=== PATIENT | female | born 1935 | race Caucasian/White ===

== ENCOUNTER → 2017-02-13 | Outpatient (REF) | payer BC, OTHER, MEDICARE | LOC: M LAB REF 16:35 | PROVIDERS: ATTEND Family Medicine | DX: E78.4 Other hyperlipidemia (principal) ==

== ENCOUNTER 2017-11-06 11:28 | Day surgery (SDC) | payer MEDICARE, BC, OTHER ==
[~2017-11-06 11:28] MED LIST: LIDOCAINE 2% MDV 20 ML VIAL As Ordered; PROPOFOL 200 MG/20 ML VIAL As Ordered
[2017-11-06] MEDS: NS 1,000 ML IV (11:30)
== END 2017-11-06 15:26 | disposition home or self-care (01) ==
LOC: M OPP 11:28
DX: D50.9 Iron deficiency anemia, unspecified (principal); K64.9 Unspecified hemorrhoids; D49.0 Neoplasm of unspecified behavior of digestive system; K63.5 Polyp of colon; K57.30 Diverticulosis of large intestine without perforation or abscess without bleeding; K44.9 Diaphragmatic hernia without obstruction or gangrene; I10 Essential (primary) hypertension; E78.00 Pure hypercholesterolemia, unspecified; E11.9 Type 2 diabetes mellitus without complications; K21.9 Gastro-esophageal reflux disease without esophagitis; Z79.82 Long term (current) use of aspirin; Z79.84 Long term (current) use of oral hypoglycemic drugs; Z78.0 Asymptomatic menopausal state; Z87.891 Personal history of nicotine dependence; Z82.49 Family history of ischemic heart disease and other diseases of the circulatory system
CPT/HCPCS: 45385

== ENCOUNTER 2017-11-29 08:53 | Inpatient (IN) | payer MEDICARE, BC, OTHER ==
[~2017-11-29 08:53] MED LIST changes: +LIDOCAINE 2% INJ 100 MG/5 ML SDV (FOR ANES.) As Ordered; -LIDOCAINE 2% MDV 20 ML VIAL As Ordered; +MIDAZOLAM INJ 2 MG/2 ML VIAL (J2250) As Ordered; +ONDANSETRON 4MG/2ML VIAL (J2405) As Ordered; +ROCURONIUM BROMIDE 50 MG/5 ML VIAL As Ordered; +dexameTHASONE 4 MG/ML 1ML VIAL (J1100) As Ordered; +fentaNYL 250 MCG/5 ML INJECTION (J3010) As Ordered
[2017-11-29 09:29] LABS: HEMATOCRIT 33.2 % (36.0-47.0); HEMOGLOBIN 9.7 g/dl (12.0-15.5); MEAN CORPUSCULAR HEMOGLOBIN 21.2 pg (27.0-33.0); MEAN CORPUSCULAR HGB CONC 29.2 g/dl (32.0-36.5); MEAN CORPUSCULAR VOLUME 72.6 fl (80.0-96.0); PLATELET COUNT, AUTOMATED 359 10^3/uL (150-450); RED BLOOD COUNT 4.57 10^6/uL (4.00-5.40); RED CELL DISTRIBUTION WIDTH 23.7 % (11.5-14.5)
[2017-11-29] MEDS: ALVIMOPAN 12 MG CAPSULE (ENTEREG) PO ×2 (09:43→21:27)
[2017-11-29] MEDS: LR 1,000 ML IV ×3 (09:44→18:18)
[2017-11-29] MEDS: cefoTEtan DISODIUM 2 GM in D5W MINI-BAG PLUS 50 ML IV ×2 (09:44→09:54)
[2017-11-29 09:50] LABS: BEDSIDE GLUCOSE 140 MG/DL (83-110)
[2017-11-29] MEDS: HEPARIN SOD (PORCINE) 5000 UNITS/ML VIAL SQ (11:31)
[2017-11-29] MEDS ORDERED: SEVOFLURANE INHAL SOLN 250 ML BTL As Ordered (11:31)
[2017-11-29] MEDS ORDERED: dexameTHASONE 4 MG/ML 1ML VIAL (J1100) As Ordered (12:16)
[2017-11-29] MEDS: metroNIDAZOLE 500 MG in APPROPRIATE DILUENT 1 EA IV (12:20)
[2017-11-29] MEDS ORDERED: PHENYLephrine HCL 500 MCG/5 ML (100MCG/ML) SYRINGE (J2370) As Ordered (12:20)
[2017-11-29] MEDS ORDERED: NEOSTIGMINE 10 MG/10 ML VIAL (J2710) As Ordered (12:42)
[2017-11-29] MEDS ORDERED: HYDROmorphone HCL 2 MG/ML 1ML VIAL (J1170) As Ordered (12:42)
[2017-11-29] MEDS ORDERED: GLYCOPYRROLATE INJ 0.2 MG/ML 2 ML VIAL As Ordered (12:42)
[2017-11-29] MEDS ORDERED: ROCURONIUM BROMIDE 50 MG/5 ML VIAL As Ordered (13:28)
[2017-11-29] MEDS ORDERED: ESMOLOL INJ 100MG/10ML VIAL As Ordered (13:46)
[2017-11-29] MEDS: BUPIVACAINE HCL 0.25% 30 ML VIAL As Ordered (15:20)
[2017-11-29] MEDS: LIDOCAINE 1% SDV INJ 30 ML VIAL As Ordered (15:20)
[2017-11-29] MEDS ORDERED: ONDANSETRON 4MG/2ML VIAL (J2405) IV ×2 (15:30→16:15)
[2017-11-29] MEDS ORDERED: NORCO, ANEXSIA 5/325MG TABLET (HYDROcodone/ACETAMINOPHEN) PO (15:30)
[2017-11-29] MEDS ORDERED: MORPHINE 4 MG/ML 1ML VIAL/SYRINGE (J2270) IV (15:30)
[2017-11-29] MEDS ORDERED: GLUCOSE 4 GM CHEW TABLET PO (15:45)
[2017-11-29] MEDS ORDERED: DEXTROSE 50% 50 ML SYRINGE IV (15:45)
[2017-11-29] MEDS ORDERED: GLUCAGON FOR INJ 1 MG VIAL (J1610) SC (15:45)
[2017-11-29] MEDS ORDERED: fentaNYL 100 MCG/2 ML INJECTION (J3010) IV (16:15)
[2017-11-29] MEDS ORDERED: HYDROMORPHONE HCL 0.5 MG/ 0.5 ML SYRINGE (J1170 PER 1) As Ordered (16:24)
[2017-11-29] MEDS: HYDROMORPHONE HCL 0.5 MG/ 0.5 ML SYRINGE (J1170 PER 1) IV ×2 (16:27→16:32)
[2017-11-29] MEDS: PERCOCET 5MG/325MG TAB PO (16:28)
[2017-11-29] MEDS: LOSARTAN 25 MG TAB PO (18:18)
[2017-11-29 18:29] LABS: BEDSIDE GLUCOSE 225 MG/DL (83-110)
[2017-11-29] MEDS: HumaLOG INSULIN (NovoLOG) PER UNIT SC (18:37)
[2017-11-29 21:01] LABS: BEDSIDE GLUCOSE 167 MG/DL (83-110)
[2017-11-29] MEDS: SENOKOT S TAB PO (21:26)
[2017-11-29] MEDS: HEPARIN SOD (PORCINE) 5000 UNITS/ML VIAL SC (21:27)
[2017-11-29] MEDS: OMEPRAZOLE 20 MG CAP PO (21:27)
[2017-11-29] MEDS: SIMVASTATIN 20 MG TAB PO (21:27)
[2017-11-30 00:23] LABS: BEDSIDE GLUCOSE 142 MG/DL (83-110)
[2017-11-30] MEDS: HumaLOG INSULIN (NovoLOG) PER UNIT SC ×4 (00:28→17:27)
[2017-11-30] MEDS: LR 1,000 ML IV (04:26)
[2017-11-30 06:01] LABS: BASO % 0.1 % (0.0-1.0); HEMATOCRIT 27.1 % (36.0-47.0); HEMOGLOBIN 8.2 g/dl (12.0-15.5); IMMATURE GRANULOCYTE % 0.7 % (0-3.0); LYMPH # 1.6 10^3/uL (1.5-4.5); LYMPH % 13.6 % (24.0-44.0); MEAN CORPUSCULAR HEMOGLOBIN 21.2 pg (27.0-33.0); MEAN CORPUSCULAR HGB CONC 30.3 g/dl (32.0-36.5); MEAN CORPUSCULAR VOLUME 70.2 fl (80.0-96.0); MONO # 0.8 10^3/uL (0.0-0.8); MONO % 6.9 % (0.0-5.0); NEUTROPHILS # 9.4 10^3/uL (1.8-7.7); NEUTROPHILS % 78.7 % (36.0-66.0); PLATELET COUNT, AUTOMATED 316 10^3/uL (150-450); RED BLOOD COUNT 3.86 10^6/uL (4.00-5.40); RED CELL DISTRIBUTION WIDTH 23.6 % (11.5-14.5)
[2017-11-30 06:16] LABS: ANION GAP 7 MEQ/L (8-16); BLOOD UREA NITROGEN 12 MG/DL (7-18); CALCIUM LEVEL 8.8 MG/DL (8.8-10.2); CARBON DIOXIDE LEVEL 27 MEQ/L (21-32); CHLORIDE LEVEL 107 MEQ/L (98-107); CREATININE FOR GFR 0.88 MG/DL (0.55-1.30); GLOMERULAR FILTRATION RATE > 60.0 (>32); GLUCOSE, FASTING 102 MG/DL (70-100); POTASSIUM SERUM 4.6 MEQ/L (3.5-5.1); SODIUM LEVEL 141 MEQ/L (136-145)
[2017-11-30 06:23] LABS: BEDSIDE GLUCOSE 102 MG/DL (83-110)
[2017-11-30] MEDS: HEPARIN SOD (PORCINE) 5000 UNITS/ML VIAL SC ×3 (06:26→21:04)
[2017-11-30] MEDS: SENOKOT S TAB PO ×2 (09:06→21:03)
[2017-11-30] MEDS: OMEPRAZOLE 20 MG CAP PO ×2 (09:06→21:03)
[2017-11-30] MEDS: LOSARTAN 25 MG TAB PO (09:06)
[2017-11-30] MEDS: ALVIMOPAN 12 MG CAPSULE (ENTEREG) PO ×2 (09:08→21:03)
[2017-11-30 12:02] LABS: BEDSIDE GLUCOSE 101 MG/DL (83-110)
[2017-11-30 16:56] LABS: BEDSIDE GLUCOSE 121 MG/DL (83-110)
[2017-11-30] MEDS: NORCO, ANEXSIA 5/325MG TABLET (HYDROcodone/ACETAMINOPHEN) PO (17:27)
[2017-11-30] MEDS: SIMVASTATIN 20 MG TAB PO (21:03)
[2017-12-01] MEDS: HumaLOG INSULIN (NovoLOG) PER UNIT SC ×4 (00:26→17:14)
[2017-12-01 05:43] LABS: BEDSIDE GLUCOSE 124 MG/DL (83-110)
[2017-12-01] MEDS: HEPARIN SOD (PORCINE) 5000 UNITS/ML VIAL SC ×3 (05:50→21:15)
[2017-12-01] MEDS: NORCO, ANEXSIA 5/325MG TABLET (HYDROcodone/ACETAMINOPHEN) PO ×3 (05:59→23:25)
[2017-12-01 06:29] LABS: BASO % 0.2 % (0.0-1.0); EOS % 0.2 % (0.0-3.0); HEMATOCRIT 30.4 % (36.0-47.0); HEMOGLOBIN 9.1 g/dl (12.0-15.5); IMMATURE GRANULOCYTE % 0.7 % (0-3.0); LYMPH # 2.3 10^3/uL (1.5-4.5); LYMPH % 17.9 % (24.0-44.0); MEAN CORPUSCULAR HEMOGLOBIN 21.2 pg (27.0-33.0); MEAN CORPUSCULAR HGB CONC 29.9 g/dl (32.0-36.5); MEAN CORPUSCULAR VOLUME 70.9 fl (80.0-96.0); MONO % 7.4 % (0.0-5.0); NEUTROPHILS # 9.5 10^3/uL (1.8-7.7); NEUTROPHILS % 73.6 % (36.0-66.0); PLATELET COUNT, AUTOMATED 329 10^3/uL (150-450); RED BLOOD COUNT 4.29 10^6/uL (4.00-5.40); RED CELL DISTRIBUTION WIDTH 23.4 % (11.5-14.5); WHITE BLOOD COUNT 12.9 10^3/uL (4.0-10.0)
[2017-12-01 06:53] LABS: ANION GAP 7 MEQ/L (8-16); BLOOD UREA NITROGEN 10 MG/DL (7-18); CALCIUM LEVEL 8.4 MG/DL (8.8-10.2); CARBON DIOXIDE LEVEL 28 MEQ/L (21-32); CHLORIDE LEVEL 103 MEQ/L (98-107); CREATININE FOR GFR 0.78 MG/DL (0.55-1.30); GLOMERULAR FILTRATION RATE > 60.0 (>32); GLUCOSE, FASTING 112 MG/DL (70-100); POTASSIUM SERUM 3.8 MEQ/L (3.5-5.1); SODIUM LEVEL 138 MEQ/L (136-145)
[2017-12-01] MEDS: OMEPRAZOLE 20 MG CAP PO ×2 (08:29→21:15)
[2017-12-01] MEDS: ALVIMOPAN 12 MG CAPSULE (ENTEREG) PO ×2 (08:31→21:14)
[2017-12-01] MEDS: SENOKOT S TAB PO ×2 (08:31→21:14)
[2017-12-01] MEDS: LOSARTAN 25 MG TAB PO (08:31)
[2017-12-01 11:51] LABS: BEDSIDE GLUCOSE 113 MG/DL (83-110)
[2017-12-01 16:34] LABS: BEDSIDE GLUCOSE 122 MG/DL (83-110)
[2017-12-01] MEDS: SIMVASTATIN 20 MG TAB PO (21:15)
[2017-12-02 00:40] LABS: BEDSIDE GLUCOSE 133 MG/DL (83-110)
[2017-12-02] MEDS: HumaLOG INSULIN (NovoLOG) PER UNIT SC ×4 (00:48→17:44)
[2017-12-02 05:46] LABS: BEDSIDE GLUCOSE 154 MG/DL (83-110)
[2017-12-02 06:13] LABS: BASO % 0.1 % (0.0-1.0); EOS % 0.1 % (0.0-3.0); HEMATOCRIT 34.5 % (36.0-47.0); HEMOGLOBIN 10.2 g/dl (12.0-15.5); IMMATURE GRANULOCYTE % 1.3 % (0-3.0); LYMPH # 1.8 10^3/uL (1.5-4.5); MEAN CORPUSCULAR HEMOGLOBIN 21.2 pg (27.0-33.0); MEAN CORPUSCULAR HGB CONC 29.6 g/dl (32.0-36.5); MEAN CORPUSCULAR VOLUME 71.7 fl (80.0-96.0); MONO % 6.4 % (0.0-5.0); NEUTROPHILS % 80.1 % (36.0-66.0); PLATELET COUNT, AUTOMATED 362 10^3/uL (150-450); RED BLOOD COUNT 4.81 10^6/uL (4.00-5.40); RED CELL DISTRIBUTION WIDTH 22.7 % (11.5-14.5)
[2017-12-02] MEDS ORDERED: PILL CRUSHER/CUTTER 1 EACH XX (06:15)
[2017-12-02 06:31] LABS: ANION GAP 8 MEQ/L (8-16); BLOOD UREA NITROGEN 12 MG/DL (7-18); CALCIUM LEVEL 8.4 MG/DL (8.8-10.2); CARBON DIOXIDE LEVEL 27 MEQ/L (21-32); CHLORIDE LEVEL 97 MEQ/L (98-107); CREATININE FOR GFR 0.71 MG/DL (0.55-1.30); GLOMERULAR FILTRATION RATE > 60.0 (>32); GLUCOSE, FASTING 141 MG/DL (70-100); POTASSIUM SERUM 3.8 MEQ/L (3.5-5.1); SODIUM LEVEL 132 MEQ/L (136-145)
[2017-12-02] MEDS ORDERED: SIMETHICONE 80 MG CHEW TAB As Ordered (06:33)
[2017-12-02 06:35] LABS: LIPASE 105 U/L (73-393)
[2017-12-02] MEDS: SIMETHICONE 80 MG CHEW TAB PO ×4 (06:35→20:08)
[2017-12-02] MEDS: HEPARIN SOD (PORCINE) 5000 UNITS/ML VIAL SC ×3 (06:36→21:35)
[2017-12-02] MEDS: ALVIMOPAN 12 MG CAPSULE (ENTEREG) PO ×2 (08:19→20:07)
[2017-12-02] MEDS: KETOROLAC 30 MG/ML VIAL (J1885) IV (08:19)
[2017-12-02] MEDS: LOSARTAN 25 MG TAB PO (08:19)
[2017-12-02] MEDS: SENOKOT S TAB PO ×2 (08:20→20:07)
[2017-12-02] MEDS: OMEPRAZOLE 20 MG CAP PO ×2 (08:20→20:07)
[2017-12-02] MEDS: KCL 20MEQ IN D5/0.45NS 1000ML 1,000 ML IV ×2 (11:13→20:07)
[2017-12-02 11:57] LABS: BEDSIDE GLUCOSE 165 MG/DL (83-110)
[2017-12-02] MEDS: SIMVASTATIN 20 MG TAB PO (20:07)
[2017-12-02] MEDS: NORCO, ANEXSIA 5/325MG TABLET (HYDROcodone/ACETAMINOPHEN) PO (21:35)
[2017-12-03] MEDS: HumaLOG INSULIN (NovoLOG) PER UNIT SC ×4 (00:10→18:30)
[2017-12-03 05:55] LABS: BEDSIDE GLUCOSE 167 MG/DL (83-110)
[2017-12-03] MEDS: KCL 20MEQ IN D5/0.45NS 1000ML 1,000 ML IV ×2 (06:06→16:00)
[2017-12-03] MEDS: HEPARIN SOD (PORCINE) 5000 UNITS/ML VIAL SC ×3 (06:06→21:53)
[2017-12-03 08:18] LABS: BASO % 0.2 % (0.0-1.0); EOS # 0.2 10^3/uL (0.0-0.50); EOS % 1.6 % (0.0-3.0); HEMATOCRIT 30.2 % (36.0-47.0); IMMATURE GRANULOCYTE % 0.9 % (0-3.0); LYMPH # 1.4 10^3/uL (1.5-4.5); MEAN CORPUSCULAR HEMOGLOBIN 21.2 pg (27.0-33.0); MEAN CORPUSCULAR HGB CONC 29.8 g/dl (32.0-36.5); MEAN CORPUSCULAR VOLUME 71.1 fl (80.0-96.0); MONO # 0.9 10^3/uL (0.0-0.8); MONO % 7.1 % (0.0-5.0); NEUTROPHILS # 10.2 10^3/uL (1.8-7.7); NEUTROPHILS % 79.2 % (36.0-66.0); PLATELET COUNT, AUTOMATED 332 10^3/uL (150-450); RED BLOOD COUNT 4.25 10^6/uL (4.00-5.40); WHITE BLOOD COUNT 12.8 10^3/uL (4.0-10.0)
[2017-12-03 08:51] LABS: ANION GAP 5 MEQ/L (8-16); BLOOD UREA NITROGEN 12 MG/DL (7-18); CARBON DIOXIDE LEVEL 26 MEQ/L (21-32); CHLORIDE LEVEL 103 MEQ/L (98-107); CREATININE FOR GFR 0.93 MG/DL (0.55-1.30); GLOMERULAR FILTRATION RATE > 60.0 (>32); GLUCOSE, FASTING 150 MG/DL (70-100); POTASSIUM SERUM 4.4 MEQ/L (3.5-5.1); SODIUM LEVEL 134 MEQ/L (136-145)
[2017-12-03] MEDS: ALVIMOPAN 12 MG CAPSULE (ENTEREG) PO ×2 (09:08→22:12)
[2017-12-03] MEDS: OMEPRAZOLE 20 MG CAP PO ×2 (09:09→21:52)
[2017-12-03] MEDS: SIMETHICONE 80 MG CHEW TAB PO ×4 (09:09→21:53)
[2017-12-03] MEDS: LOSARTAN 25 MG TAB PO (09:09)
[2017-12-03] MEDS: SENOKOT S TAB PO ×2 (09:09→21:52)
[2017-12-03] MEDS: BISACODYL 10 MG SUPP PR (10:42)
[2017-12-03] MEDS: MIRALAX *UNIT DOSE* 17GM PACKET PO (10:43)
[2017-12-03 11:51] LABS: BEDSIDE GLUCOSE 149 MG/DL (83-110)
[2017-12-03] MEDS: SIMVASTATIN 20 MG TAB PO (21:52)
[2017-12-03] MEDS: NORCO, ANEXSIA 5/325MG TABLET (HYDROcodone/ACETAMINOPHEN) PO (22:13)
[2017-12-03 23:54] LABS: BEDSIDE GLUCOSE 177 MG/DL (83-110)
[2017-12-04] MEDS: HumaLOG INSULIN (NovoLOG) PER UNIT SC ×5 (00:11→20:49)
[2017-12-04] MEDS: KCL 20MEQ IN D5/0.45NS 1000ML 1,000 ML IV ×3 (02:31→21:59)
[2017-12-04 05:55] LABS: BEDSIDE GLUCOSE 199 MG/DL (83-110)
[2017-12-04 05:55] LABS: BEDSIDE GLUCOSE 159 MG/DL (83-110)
[2017-12-04 05:55] LABS: BEDSIDE GLUCOSE 160 MG/DL (83-110)
[2017-12-04 05:55] LABS: BEDSIDE GLUCOSE 169 MG/DL (83-110)
[2017-12-04 05:55] LABS: BEDSIDE GLUCOSE 122 MG/DL (83-110)
[2017-12-04] MEDS: HEPARIN SOD (PORCINE) 5000 UNITS/ML VIAL SC ×3 (06:17→21:52)
[2017-12-04 08:02] LABS: BASO % 0.3 % (0.0-1.0); EOS # 0.2 10^3/uL (0.0-0.50); EOS % 2.1 % (0.0-3.0); HEMATOCRIT 28.3 % (36.0-47.0); HEMOGLOBIN 8.3 g/dl (12.0-15.5); IMMATURE GRANULOCYTE % 1.5 % (0-3.0); LYMPH # 1.5 10^3/uL (1.5-4.5); LYMPH % 13.1 % (24.0-44.0); MEAN CORPUSCULAR HEMOGLOBIN 21.1 pg (27.0-33.0); MEAN CORPUSCULAR HGB CONC 29.3 g/dl (32.0-36.5); MEAN CORPUSCULAR VOLUME 71.8 fl (80.0-96.0); MONO # 0.9 10^3/uL (0.0-0.8); MONO % 8.1 % (0.0-5.0); NEUTROPHILS # 8.6 10^3/uL (1.8-7.7); NEUTROPHILS % 74.9 % (36.0-66.0); PLATELET COUNT, AUTOMATED 344 10^3/uL (150-450); RED BLOOD COUNT 3.94 10^6/uL (4.00-5.40); RED CELL DISTRIBUTION WIDTH 22.1 % (11.5-14.5); WHITE BLOOD COUNT 11.4 10^3/uL (4.0-10.0)
[2017-12-04 08:31] LABS: ANION GAP 9 MEQ/L (8-16); BLOOD UREA NITROGEN 8 MG/DL (7-18); CALCIUM LEVEL 7.9 MG/DL (8.8-10.2); CARBON DIOXIDE LEVEL 24 MEQ/L (21-32); CHLORIDE LEVEL 107 MEQ/L (98-107); CREATININE FOR GFR 0.83 MG/DL (0.55-1.30); GLOMERULAR FILTRATION RATE > 60.0 (>32); GLUCOSE, FASTING 136 MG/DL (70-100); POTASSIUM SERUM 4.4 MEQ/L (3.5-5.1); SODIUM LEVEL 140 MEQ/L (136-145)
[2017-12-04] MEDS: ALVIMOPAN 12 MG CAPSULE (ENTEREG) PO ×2 (09:46→21:50)
[2017-12-04] MEDS: SIMETHICONE 80 MG CHEW TAB PO ×4 (09:46→21:50)
[2017-12-04] MEDS: OMEPRAZOLE 20 MG CAP PO ×2 (09:46→21:51)
[2017-12-04] MEDS: LOSARTAN 25 MG TAB PO (09:48)
[2017-12-04] MEDS: MIRALAX *UNIT DOSE* 17GM PACKET PO (09:49)
[2017-12-04] MEDS: SENOKOT S TAB PO ×2 (09:49→21:51)
[2017-12-04 12:13] LABS: BEDSIDE GLUCOSE 156 MG/DL (83-110)
[2017-12-04 12:18] LABS: BEDSIDE GLUCOSE 135 MG/DL (83-110)
[2017-12-04] MEDS: FLEET ENEMA PR (14:13)
[2017-12-04 17:08] LABS: BEDSIDE GLUCOSE 128 MG/DL (83-110)
[2017-12-04] MEDS ORDERED: GLUCAGON FOR INJ 1 MG VIAL (J1610) SC (19:45)
[2017-12-04] MEDS ORDERED: DEXTROSE 50% 50 ML SYRINGE IV (19:45)
[2017-12-04] MEDS ORDERED: GLUCOSE 4 GM CHEW TABLET PO (19:45)
[2017-12-04 20:49] LABS: BEDSIDE GLUCOSE 175 MG/DL (83-110)
[2017-12-04] MEDS: SIMVASTATIN 20 MG TAB PO (21:51)
[2017-12-05] MEDS: NORCO, ANEXSIA 5/325MG TABLET (HYDROcodone/ACETAMINOPHEN) PO (02:41)
[2017-12-05] MEDS: HEPARIN SOD (PORCINE) 5000 UNITS/ML VIAL SC ×3 (05:49→21:10)
[2017-12-05 06:09] LABS: BEDSIDE GLUCOSE 145 MG/DL (83-110)
[2017-12-05] MEDS: OMEPRAZOLE 20 MG CAP PO ×2 (08:03→21:10)
[2017-12-05] MEDS: MIRALAX *UNIT DOSE* 17GM PACKET PO ×2 (08:03→08:44)
[2017-12-05] MEDS: SIMETHICONE 80 MG CHEW TAB PO ×4 (08:03→21:09)
[2017-12-05] MEDS: LOSARTAN 25 MG TAB PO (08:03)
[2017-12-05] MEDS: SENOKOT S TAB PO ×2 (08:03→21:09)
[2017-12-05] MEDS: ALVIMOPAN 12 MG CAPSULE (ENTEREG) PO (08:03)
[2017-12-05] MEDS: KCL 20MEQ IN D5/0.45NS 1000ML 1,000 ML IV (08:04)
[2017-12-05] MEDS: HumaLOG INSULIN (NovoLOG) PER UNIT SC ×4 (08:04→20:15)
[2017-12-05 11:40] LABS: BEDSIDE GLUCOSE 138 MG/DL (83-110)
[2017-12-05 14:46] LABS: AMYLASE, BODY FLUID 28 U/L (NOT ESTABLISHED); SOURCE, BODY FLUID AMYLASE OTHER; SOURCE, BODY FLUID LIPASE OTHER
[2017-12-05 17:24] LABS: BEDSIDE GLUCOSE 109 MG/DL (83-110)
[2017-12-05 19:51] LABS: BEDSIDE GLUCOSE 145 MG/DL (83-110)
[2017-12-05] MEDS: ACETAMINOPHEN TAB 650MG DOSE (2X325MG) PO (21:10)
[2017-12-05] MEDS: SIMVASTATIN 20 MG TAB PO (21:10)
[2017-12-06] MEDS: HEPARIN SOD (PORCINE) 5000 UNITS/ML VIAL SC (05:11)
[2017-12-06 05:48] LABS: BASO % 0.2 % (0.0-1.0); EOS # 0.3 10^3/uL (0.0-0.50); EOS % 3.7 % (0.0-3.0); HEMATOCRIT 29.7 % (36.0-47.0); HEMOGLOBIN 8.6 g/dl (12.0-15.5); IMMATURE GRANULOCYTE % 1.6 % (0-3.0); LYMPH # 1.8 10^3/uL (1.5-4.5); LYMPH % 21.9 % (24.0-44.0); MEAN CORPUSCULAR HEMOGLOBIN 21.1 pg (27.0-33.0); MEAN CORPUSCULAR VOLUME 72.8 fl (80.0-96.0); MONO # 0.7 10^3/uL (0.0-0.8); MONO % 8.4 % (0.0-5.0); NEUTROPHILS # 5.4 10^3/uL (1.8-7.7); NEUTROPHILS % 64.2 % (36.0-66.0); PLATELET COUNT, AUTOMATED 423 10^3/uL (150-450); RED BLOOD COUNT 4.08 10^6/uL (4.00-5.40); RED CELL DISTRIBUTION WIDTH 22.3 % (11.5-14.5); WHITE BLOOD COUNT 8.3 10^3/uL (4.0-10.0)
[2017-12-06 06:01] LABS: ANION GAP 8 MEQ/L (8-16); BLOOD UREA NITROGEN 5 MG/DL (7-18); CALCIUM LEVEL 8.5 MG/DL (8.8-10.2); CARBON DIOXIDE LEVEL 27 MEQ/L (21-32); CHLORIDE LEVEL 107 MEQ/L (98-107); CREATININE FOR GFR 0.85 MG/DL (0.55-1.30); GLOMERULAR FILTRATION RATE > 60.0 (>32); GLUCOSE, FASTING 115 MG/DL (70-100); LIPASE 177 U/L (73-393); POTASSIUM SERUM 4.5 MEQ/L (3.5-5.1); SODIUM LEVEL 142 MEQ/L (136-145)
[2017-12-06] MEDS: HumaLOG INSULIN (NovoLOG) PER UNIT SC (07:25)
[2017-12-06] MEDS: SENOKOT S TAB PO (07:47)
[2017-12-06] MEDS: OMEPRAZOLE 20 MG CAP PO (07:47)
[2017-12-06] MEDS: SIMETHICONE 80 MG CHEW TAB PO (07:47)
[2017-12-06] MEDS: LOSARTAN 25 MG TAB PO (07:47)
== END 2017-12-06 11:36 | disposition home health service (06) | DRG 330 ==
LOC: M OR 08:53 → M MSPAV 17:00
PROC: 0DBL4ZZ Excision of Transverse Colon, Percutaneous Endoscopic Approach (ICD-10-PCS; principal; 2017-11-29 11:00)
DX: C18.4 Malignant neoplasm of transverse colon (principal); K56.7 Ileus, unspecified; Z79.82 Long term (current) use of aspirin; Z79.899 Other long term (current) drug therapy; I10 Essential (primary) hypertension; E78.00 Pure hypercholesterolemia, unspecified; E11.9 Type 2 diabetes mellitus without complications; Z87.891 Personal history of nicotine dependence; D50.9 Iron deficiency anemia, unspecified

== ENCOUNTER → 2018-03-25 | Outpatient (CLI) | payer MEDICARE, BC, OTHER ==
[~2018-03-25] MED LIST changes: +ISOVUE-370 76% 100ML VIAL (Q9967) As Ordered; -LIDOCAINE 2% INJ 100 MG/5 ML SDV (FOR ANES.) As Ordered; -MIDAZOLAM INJ 2 MG/2 ML VIAL (J2250) As Ordered; -ONDANSETRON 4MG/2ML VIAL (J2405) As Ordered; -PROPOFOL 200 MG/20 ML VIAL As Ordered; -ROCURONIUM BROMIDE 50 MG/5 ML VIAL As Ordered; -dexameTHASONE 4 MG/ML 1ML VIAL (J1100) As Ordered; -fentaNYL 250 MCG/5 ML INJECTION (J3010) As Ordered
== END ==
LOC: M RAD 09:21
DX: R05 Cough (principal); Z12.11 Encounter for screening for malignant neoplasm of colon
CPT/HCPCS: Q9967

== ENCOUNTER → 2018-06-24 | Outpatient (CLI) | payer MEDICARE, BC, OTHER ==
[~2018-06-24] MED LIST changes: +ASPI1CHW2 PO; +GLIM2TAB PO; -ISOVUE-370 76% 100ML VIAL (Q9967) As Ordered; +LOSA25TA14 PO; +METF500T13 PO; +NORCOTAB PO; +OMEP20CA3 PO; +SIMV20TA2 PO
--- NOTE | 2018-06-25 13:56 | REP ---
PET/CT: History: Solitary pulmonary nodule. History of colon carcinoma. Comparisons: Comparison chest CT study March 25, 2018. TECHNIQUE: 53 minutes following the intravenous injection of a 8.76 mCi dose of F-18 FDG, three-dimensional PET scintigraphy is acquired from the skull base to the proximal thighs. Triplanar noncontrast CT scanning is acquired through the same anatomic range for attenuation correction, and image registration with scan parameters optimized to minimize radiation exposure to the patient. PET scintigraphy and CT datasets were fused and displayed on a workstation with multiplanar and projection display capability. PET/CT Findings: The right middle lobe pulmonary nodule shows no hypermetabolic uptake, maximum standard uptake value is 0.8. There is no abnormal hypermetabolic uptake within the chest. None of the other fibrotic areas of parenchymal opacity show hypermetabolic uptake. Head and neck soft tissues are unremarkable. In the abdomen and pelvis there is no abnormal hypermetabolic uptake. There is a large left ovarian dermoid noted in the pelvis measuring 7.5 x 9.8 cm. Impression: 1. No abnormal hypermetabolic uptake is seen within the thorax or elsewhere. 2. 9.8 cm left ovarian dermoid. Electronically Signed by Santiago Bellamy MD 06/25/2018 05:06 P
== END ==
LOC: M PLARAD 12:06
PROVIDERS: ATTEND Internal Medicine Pulmonary Disease
DX: R91.1 Solitary pulmonary nodule (principal); D27.1 Benign neoplasm of left ovary; Z85.038 Personal history of other malignant neoplasm of large intestine
CPT/HCPCS: 78815; A9552

== ENCOUNTER 2019-02-25 06:41 | Day surgery (SDC) | payer MEDICARE, BC, OTHER ==
[~2019-02-25] VITALS: Ht 157.5 cm; Wt 62.1 kg
[~2019-02-25 06:41] MED LIST changes: -GLIM2TAB PO; +GLIM2TAB2 PO; +HYDR-3715 PO; -NORCOTAB PO; -OMEP20CA3 PO; +OMEP20CA4 PO
[2019-02-25] MEDS ORDERED: NS 1,000 ML IV ONE (06:45)
[2019-02-25] MEDS ORDERED: PROPOFOL 200 MG/20 ML VIAL As Ordered ONE ×2 (08:34→09:37)
[2019-02-25] MEDS ORDERED: ESMOLOL INJ 100MG/10ML VIAL As Ordered ONE (08:51)
--- NOTE | 2019-02-25 08:55 | ROOR ---
Patient Name: Keyanna Cantu Procedure Date: 02/25/2019 8:23 AM Date of : 1935 Age: 83 Room: [facility] Gender: Female Note Status: Finalized Procedure: Colonoscopy Indications: High risk colon cancer surveillance: Personal history of colon cancer Providers: Yohan oRcha MD Referring MD: Patricia Landin DO Requesting Provider: Medicines: Monitored Anesthesia Care Complications: No immediate complications. Procedure: Pre-Anesthesia Assessment: - Prior to the procedure, a History and Physical was performed, and patient medications and allergies were reviewed. The patient is competent. The risks and benefits of the procedure and the sedation options and risks were discussed with the patient. All questions were answered and informed consent was obtained. Patient identification and proposed procedure were verified by the physician, the nurse and the anesthesiologist in the endoscopy suite. Mental Status Examination: alert and oriented. Airway Examination: normal oropharyngeal airway and neck mobility. Respiratory Examination: clear to auscultation. CV Examination: normal. Prophylactic Antibiotics: The patient does not require prophylactic antibiotics. Prior Anticoagulants: The patient has taken aspirin, last dose was day of procedure. ASA Grade Assessment: III - A patient with severe systemic disease. After reviewing the risks and benefits, the patient was deemed in satisfactory condition to undergo the procedure. The anesthesia plan was to use monitored anesthesia care (MAC). Immediately prior to administration of medications, the patient was re-assessed for adequacy to receive sedatives. The heart rate, respiratory rate, oxygen saturations, blood pressure, adequacy of pulmonary ventilation, and response to care were monitored throughout the procedure. The physical status of the patient was re-assessed after the procedure. The Colonoscope was introduced through the anus and advanced to the terminal ileum, with identification of the appendiceal orifice and IC valve. The colonoscopy was performed without difficulty. The patient tolerated the procedure well. The quality of the bowel preparation was good. Findings: Hemorrhoids were found on perianal exam. There was evidence of a prior [id number] colo-colonic anastomosis in the transverse colon. This was patent and was characterized by healthy appearing mucosa and no visible mary, four tiny whitish nodules along the staple line without bleeding or accompanying inflammation note and biopsied. The anastomosis easily traversed. [Traversed]. This was biopsied with a cold forceps for histology. Estimated blood loss was minimal. Multiple small-mouthed diverticula were found in the sigmoid colon, descending colon and transverse colon. There was no evidence of diverticular bleeding. No additional abnormalities were found on retroflexion. Impression: - Hemorrhoids found on perianal exam. - Patent end-to-side colo-colonic anastomosis, characterized by no visible mary and healthy appearing mucosa. Biopsied. - Mild diverticulosis in the sigmoid colon, in the descending colon and in the transverse colon. There was no evidence of diverticular bleeding. Recommendation: - Discharge patient to home (ambulatory). - Await pathology results. - Repeat colonoscopy in 3 years for surveillance based on pathology results. Yohan Rocha MD Yohan Rocha MD 02/25/2019 8:54:44 AM Electronically signed by Yohan Rocha MD Number of Addenda: 0 Note Initiated On: 02/25/2019 8:23 AM Estimated Blood Loss: Estimated blood loss was minimal.
[2019-02-25 09:35] VITALS: BP 113/63
== END 2019-02-25 09:37 | disposition home or self-care (01) ==
LOC: M OPP 06:41
PROVIDERS: ATTEND Surgery
DX: Z08 Encounter for follow-up examination after completed treatment for malignant neoplasm (principal); Z85.038 Personal history of other malignant neoplasm of large intestine; Z86.010 Personal history of colon polyps; K63.89 Other specified diseases of intestine; Z98.0 Intestinal bypass and anastomosis status; K57.30 Diverticulosis of large intestine without perforation or abscess without bleeding; K64.8 Other hemorrhoids; I10 Essential (primary) hypertension; E78.5 Hyperlipidemia, unspecified; R00.2 Palpitations; E11.9 Type 2 diabetes mellitus without complications; R12 Heartburn; Z78.0 Asymptomatic menopausal state; Z79.82 Long term (current) use of aspirin; Z79.84 Long term (current) use of oral hypoglycemic drugs; Z79.899 Other long term (current) drug therapy

== ENCOUNTER → 2019-12-25 | Outpatient (CLI) | payer MEDICARE, BC, OTHER ==
[~2019-12-25] MED LIST changes: -GLIM2TAB2 PO; +GLIM2TAB4 PO; +OCUVTAB4 PO; +OMEP1CAP73 PO; -OMEP20CA4 PO; -SIMV20TA2 PO; +SIMV20TA22 PO
--- NOTE | 2020-01-14 19:58 | REP ---
NONCONTRAST CHEST CT CLINICAL: Follow-up solitary pulmonary nodule. TECHNIQUE: Axial noncontrast images from the thoracic inlet to the upper abdomen with coronal and sagittal reformations. COMPARISON: 03/25/2018. FINDINGS: Mild emphysematous changes along with scattered subpleural fibrosis is again noted. An 8-mm noncalcified subpleural nodule along the periphery of the right middle lobe (Image 52) is again identified and stable. No new consolidation, nodule, or mass lesion. No effusion. No pneumothorax. Tracheobronchial tree is patent. No significant adenopathy. Mediastinum demonstrates atherosclerotic changes to the thoracic aorta and coronary arteries without aortic aneurysm or cardiomegaly. No pericardial effusion. Musculoskeletal structures demonstrate age-related changes. IMPRESSION: 1. Stable scattered subpleural fibrosis and stable 8-mm noncalcified right middle lobe subpleural nodule. 2. No new acute mediastinal or pleural parenchymal process appreciated. MTDD
== END ==
LOC: M RAD 15:45
PROVIDERS: ATTEND Internal Medicine Pulmonary Disease
DX: R91.1 Solitary pulmonary nodule (principal)

== ENCOUNTER → 2020-01-06 | Outpatient (CLI) | payer MEDICARE, BC, OTHER ==
[~2020-01-06] MED LIST changes: +GASTROGRAFIN SOLUTION 30ML (Q9963) As Ordered ONE; +ISOVUE-370 76% 100ML VIAL As Ordered ONE
--- NOTE | 2020-01-14 20:00 | REP ---
CT STUDY ABDOMEN AND PELVIS WITHOUT AND WITH INTRAVENOUS (IV) CONTRAST: WITH ORAL CONTRAST HISTORY: History of malignant neoplasm in the large intestine. COMPARISON: PET CT study from 06/24/2018. CT CONTRAST DOSE: 100 mL of intravenous Isovue-[address] FINDINGS: Preliminary digital lapidarist radiograph is remarkable for aortic vascular calcification and a normal bowel gas pattern. The lung bases show mild linear fibrosis. No pulmonary nodule or mass lesion is observed. There is no evidence of pleural effusion. There are granulomatous calcifications in the liver and spleen. No liver mass lesion or focal splenic mass lesion is observed. No abnormality is noted in the pancreas. There is a tiny Lipomatous nodule in the left adrenal gland, 7 mm in greatest diameter. This is felt to be benign. Lipoma versus myelolipoma. No abnormalities noted in the gallbladder. There is no retroperitoneal mass or adenopathy. The kidneys enhance symmetrically and appear morphologically intact. There is an anastomotic suture line in the central abdomen post partial colon resection. There is left colonic diverticulosis. No mesenteric mass or adenopathy is appreciated. There is a large left ovarian dermoid cyst noted in the left pelvis and lower abdomen. This measures 11.9 cm in greatest diameter posterior span x 10.4 cm [id number] by 8.6 cm [id number]. It appears somewhat larger than it did at the time of the PET CT study from 06/24/2018. At that time, it measured 9.8 x 7.5 cm in transverse dimension. There is no evidence of free fluid. Urinary bladder is largely empty, but appears intact. No pelvic mass or adenopathy is seen. In the right flank lateral to the colon, there is an area of at density surrounded by mild induration consistent with an area of fat necrosis. This is unchanged from the comparison CT study 06/24/2018. No abdominal wall defect is seen. Bone window settings show no bony destructive lesion. IMPRESSION: Gradually enlarging left ovarian dermoid cyst now 11.9 cm in greatest diameter. Left colonic diverticulosis. Status post colon resection. No evidence of adenopathy or hepatic metastasis. MTDD
== END ==
LOC: M RAD 13:59
PROVIDERS: ATTEND Surgery
DX: Z85.038 Personal history of other malignant neoplasm of large intestine (principal); R14.0 Abdominal distension (gaseous); N83.201 Unspecified ovarian cyst, right side; K57.30 Diverticulosis of large intestine without perforation or abscess without bleeding; Z90.49 Acquired absence of other specified parts of digestive tract
CPT/HCPCS: 74178; Q9963; Q9967

== ENCOUNTER → 2020-12-28 | Outpatient (CLI) | payer MEDICARE, BC, OTHER ==
[~2020-12-28] MED LIST changes: +COVI100V IM; +METO1TAB87 PO
--- NOTE | 2020-12-28 13:29 | REP ---
INDICATION: COLON CANCER. COMPARISON: 01/06/2020 the only prior TECHNIQUE: Standard helical technique after the intravenous administration of 100 cc Isovue 370 and oral bowel preparatory contrast administration. FINDINGS: The liver, gallbladder, spleen, pancreas, adrenal glands, and kidneys are essentially unchanged and again seen to be within normal limits. There is no significant change in appearance of the bowel loops or the mesenteries. There is no evidence of free fluid or free air. Colonic postoperative changes noted status quo. The large pelvic mass seen previously is been excised. There are no new masses. The osseous structures are stable and intact. IMPRESSION: There is no evidence of acute disease. Findings as described above. <Electronically signed by Jack Lopez > 12/28/20 [id number]
--- NOTE | 2020-12-28 13:34 | REP ---
INDICATION: COLON CANCER COMPARISON: Multiple the latest 12/25/2019 TECHNIQUE: Standard helical CT after the intravenous administration of 100 cc Isovue 370 FINDINGS: The mediastinum pulmonary christine are unchanged. No mass or adenopathy has developed. There are no pleural or pericardial effusions. There is no significant change in appearance of the imaged osseous structures Evaluation of the lung darden shows multiple stable pulmonary nodules, asymmetric curvilinear densities, and areas of cylindrical bronchiectasis. No new abnormal nodules, masses, or opacities have developed. IMPRESSION: Stable CT findings. <Electronically signed by Jack Lopez > 12/28/20 [id number]
== END ==
LOC: M RAD 11:07
PROVIDERS: ATTEND Internal Medicine Medical Oncology
DX: C18.9 Malignant neoplasm of colon, unspecified (principal)
CPT/HCPCS: 71260; 74177; Q9963; Q9967

== ENCOUNTER → 2021-07-26 | Outpatient (CLI) | payer MEDICARE, BC, OTHER ==
[~2021-07-26] MED LIST changes: +ALEN70TA82 PO; +LOSA25TA13 PO; -LOSA25TA14 PO; +SENO8.6T5 PO
== END ==
LOC: M RAD 12:15
PROVIDERS: ATTEND Internal Medicine Medical Oncology
DX: C18.9 Malignant neoplasm of colon, unspecified (principal)
CPT/HCPCS: 71260; 74177; Q9963; Q9967